=== PATIENT | female | born 1950 ===

== ENCOUNTER 2016-08-15 03:15 | Emergency (ER) | payer MEDICARE, BC ==
[~2016-08-15] VITALS: Ht 175.3 cm; Wt 71.8 kg
[2016-08-15 03:21] VITALS: BP 124/83; PULSE 100; RESP 18; TEMP 98.2; O2SAT 99
[2016-08-15 03:52] VITALS: BP 124/83; PULSE 92; RESP 18; TEMP 98.2; O2SAT 99
[2016-08-15] MEDS ORDERED: CITA10TA4 PO (03:52)
[2016-08-15] MEDS ORDERED: PANT40TA3 PO (03:52)
[2016-08-15] MEDS ORDERED: MOBI15TA PO (03:52)
[2016-08-15] MEDS ORDERED: PRED50 PO (04:54)
[2016-08-15] MEDS ORDERED: PERC5TAB12 PO (04:54)
--- NOTE | 2016-08-15 04:55 | PD ---
HPI Chief Complaint: Musculoskeletal Complaint Time Seen by Provider: 04:18 Travel History International Travel<30 days: No Contact w/Intl Traveler<30days: No Traveled to known affect area: No History of Present Illness HPI The patient is a 66-year-old right-hand dominant female who woke up yesterday morning, approximately 24 hours ago to find her left hand feeling numb. She thought initially that she just slept on it wrong. She now has noticed swelling of the fingers to where she had to take her rings off her finger and pain on the fingertips of the thumb and other 4 fingers. It hurts her to flex her joints in the hand fully, likely because of joint swelling. She is active and is to appear in a golf tournament in a few days. She recently was put on sulfa but immediately got diarrhea and vomiting and was told to get off of the Bactrim DS. 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 She does state Mobic 15 mg daily for arthritis pain. She denies any fever, wheezing, shortness breath, chest pain, shoulder pain or neck pain. She has had a bilateral mastectomy. PFSH Past Medical History Arthritis: Yes Cancer: Yes Diminished Hearing: No Genetic Disorder: Yes (MS) Tetanus Vaccination: Unknown Influenza Vaccination: Yes ?: Not Menopausal: Yes Past Surgical History Abdominal Surgery: Yes Gynecologic Surgery: Yes Hysterectomy: Yes Mastectomy: Yes (bilat) Tonsillectomy: Yes Social History Alcohol Use: No Tobacco Use: Yes (07/07 ppd) Substance Use: No Allergies-Medications (Allergen,Severity, Reaction): Coded Allergies: Morphine (Verified Allergy, Severe, Hives, 08/15/16) Sulfa (Verified Allergy, Intermediate, Nausea/Vomiting, 08/15/16) Reported Meds & Prescriptions Reported Meds & Active Scripts Active Reported Mobic (Meloxicam) 15 Mg Tab 15 Mg PO DAILY Pantoprazole (Pantoprazole Sodium) 40 Mg Tab 40 Mg PO DAILY Citalopram (Citalopram Hydrobromide) 10 Mg Tab 10 Mg PO DAILY Review of Systems Except as stated in HPI: all other systems reviewed are Neg Physical Exam Narrative GENERAL: Well-nourished, well-developed patient in slight apparent distress with her left hand discomfort. Her vital signs initially showed a heart rate of 100 but repeat reveals a 92 pulse and the rest the vital signs are normal. SKIN: Warm and dry. HEAD: Normocephalic. EYES: No scleral icterus. No injection or drainage. NECK: Supple, trachea midline. No JVD or lymphadenopathy. CARDIOVASCULAR: Regular rate and rhythm without murmurs, gallops, or rubs. RESPIRATORY: Breath sounds equal bilaterally. No accessory muscle use. GASTROINTESTINAL: Abdomen soft, non-tender, nondistended. MUSCULOSKELETAL: No cyanosis, or edema. The left hand appears slightly swollen and slightly erythematous as compared to the right hand. She has excellent capillary refill and good radial pulses. She has normal pinprick sensation on all fingers. If anything, the left hand feels slightly warmer than the right hand. This does not appear as an infection but has an allergic reaction. There is no joint tenderness present. The only tenderness she has is on the tips of the fingers. BACK: Nontender without obvious deformity. No CVA tenderness. Data Data Last Documented VS Vital Signs Date Time Temp Pulse Resp B/P Pulse Ox O2 Delivery O2 Flow Rate FiO2 08/15/16 03:55 92 18 08/15/16 03:52 98.2 124/83 99 MDM Medical Decision Making Medical Screen Exam Complete: Yes Emergency Medical Condition: Yes Medical Record Reviewed: Yes Differential Diagnosis Medication reaction to sulfa, arthritis, carpal tunnel syndrome, arterial occlusion, venous occlusion, cellulitis right hand Narrative Course The patient likely has a medication reaction to sulfa. Plan: The patient will be given a tapered course of prednisone. She should follow-up with her [employer] developer whom she sees regularly. Diagnosis Primary Impression: Swelling of left hand Additional Instructions: As we discussed, the prednisone is taken one tablet twice daily for 4 days followed by one tablet once daily for 4 days. Follow-up with your [employer] developer. Med/Other Pt SpecificInfo: Prescription(s) given Scripts Oxycodone-Acetaminophen (Percocet)5-325 mg Tab1 Tab PO Q4H PRN (PAIN) #28 TAB Ref 0 Prov:Crhis Byers MD 08/15/16 Prednisone 50 Mg Tab50 Mg PO BID PRN (X4 days than daily X4 days) #12 TAB Ref 0 Prov:Chris Byers MD 08/15/16 Disposition: 01 DISCHARGE HOME Condition: Stable Chris Byers MD Aug 15, 2016 04:55
[2016-08-15] MEDS ORDERED: oxyCODONE/ACETAMINOPHEN 7.5 MG/325 MG TAB PO ONE (05:00)
[2016-08-15] MEDS ORDERED: predniSONE 20 MG TAB PO ONE (05:00)
[2016-08-15 05:06] VITALS: BP 126/78; PULSE 88; RESP 18; O2SAT 98
== END 2016-08-15 05:14 | disposition home or self-care (01) ==
LOC: PHED 03:15
DX: M79.89 Other specified soft tissue disorders (principal); G35 Multiple sclerosis; F17.210 Nicotine dependence, cigarettes, uncomplicated
CPT/HCPCS: 99283; J7512